=== PATIENT | female | born 1960 | race Caucasian/White ===

== ENCOUNTER 2023-10-06 23:20 | Emergency (ER) | payer BC, SELFPAY ==
[2023-10-06 23:29] VITALS: BP 133/77; BP 153/84; PULSE 78; PULSE 81; RESP 16; RESP 18; TEMP 35.9; O2SAT 98; O2SAT 99; BMI 23.6
--- NOTE | 2023-10-06 23:41 | ED_ITS ---
HPI - Allergic Reaction General Chief complaint: Allergic Reaction Stated complaint: allergic reaction Time Seen by Provider: 10/06/23 23:36 History of Present Illness HPI narrative: Patient is a 63-year-old woman who be traveling to [place] this coming week. She took a herbal supplement tonight to improve her immunity and shortly after ingesting the tablet developed some flushing of her face and neck. Her symptoms are better now. She has no mucous membrane involvement no chest pain no shortness of breath orthopnea no PND no nausea no vomiting. She has had no similar spots as previously. Patient otherwise feels well. Related Data Home Medications ?Medication ?Instructions ?Recorded ?Confirmed fluoxetine 20 mg capsule 20 mg PO QAM 10/06/23 10/06/23 Allergies Allergy/AdvReac Type Severity Reaction Status Date / Time No Known Drug Allergies Allergy Verified 10/06/23 23:31 Review of Systems Status of ROS Reports: 10 or more systems reviewed and unremarkable except as noted in History and below Exam Narrative: Exam Narrative: EXAM GENERAL: Patient appears comfortable and well. EYES: No scleral icterus. ENT: Tympanic membranes and oropharynx normal. THYROID: no thyroid nodules or thyromegaly. LYMPH: No supraclavicular or cervical lymphadenopathy. SKIN: Visible skin seen during exam normal or with benign process only. EXT: No dependent lower extremity pedal edema. HEART: Regular rate and rhythm with no murmurs, rubs, or gallops. LUNGS: Clear to auscultation bilaterally with no crackles or wheezes. ABD: Soft, non tender, non distended. PSYCH: Good eye contact, speech is not pressured. I see no findings on exam of any urticaria. Const: Vital Signs, click to edit/add: Vital Signs - 24 hr 10/06/23 23:29 Temperature 96.7 F L Pulse Rate [Pulse Oximeter] 78 Respiratory Rate 16 Blood Pressure [Ri ght Upper Arm] 153/84 H Pulse Oximetry 98 Oxygen Delivery Me thod Room Air Course Course ED Course: Patient seen and examined. I do not find any significant findings. Her vital signs are grossly normal. Her symptoms are minimal. At this time differential diagnosis includes but not limited to. acute allergic reaction urticaria toxic ingestion food poisoning. I did offer reassurance and recommended Benadryl as directed 25-50 mg q.i.d.. They will follow-up with her primary physician as needed. Vital Signs Vital signs: Initial Vital Signs Temperature 96.7 F L 10/06/23 23:29 Temperature Source Temporal Artery Scan 10/06/23 23:29 Pulse Rate 78 10/06/23 23:29 Respiratory Rate 16 10/06/23 23:29 Blood Pressure 153/84 H 10/06/23 23:29 Blood Pressure Mean 107 H 10/06/23 23:29 Blood Pressure Position Sitting 10/06/23 23:29 Pulse Oximetry 98 10/06/23 23:29 Oxygen Delivery Method Room Air 10/06/23 23:29 Vital Signs Temperature 96.7 F L 10/06/23 23:29 Pulse Rate 78 10/06/23 23:29 Respiratory Rate 16 10/06/23 23:29 Blood Pressure 153/84 H 10/06/23 23:29 Pulse Oximetry 98 10/06/23 23:29 Oxygen Delivery Method Room Air 10/06/23 23:29 Temperature 96.7 F L 10/06/23 23:29 Pulse Rate 78 10/06/23 23:29 Respiratory Rate 16 10/06/23 23:29 Blood Pressure 153/84 H 10/06/23 23:29 Pulse Oximetry 98 10/06/23 23:29 Oxygen Delivery Method Room Air 10/06/23 23:29 Discharge Plan Discharge Clinical Impression: Allergic reaction Patient Disposition: Home, Self-Care Condition: Stable Instructions: General Allergic Reaction (ED) Additional Instructions: Benadryl 25-50 mg 4 times a day for the next 2 days and then 4 times a day as ne eded. Avoid similar products Report any change in symptoms Follow-up with your doctor as needed. Activity Level: No Restrictions Discharge Diet: Regular Prescriptions: No Action fluoxetine 20 mg capsule 20 mg PO QAM Follow Up/Referrals: Tiffany Tirado PA-C [Primary Care Provider] - Stand Alone Forms: [employer] Info Instructions
--- OUTSIDE RECORDS SUMMARY | 2023-10-07 00:23 | XMS_ITS | Clinical Summary ---
Author Organization Done In :[facility] Address [place], [place] [address] Care Team Providers Care Rn Medication Name Role Phone Tiffany Tirado Primary Care Provider Allergies Active Allergy Reactions Criticality Noted Date Comments Bacitracin Rash 09/13/2016 Latex Itching 04/12/2020 Neomycin Rash Low 04/27/2015 Bacitracin-Polymyxin B Rash 09/13/2016 Medications Medication Sig Dispensed Refills Start Date End Date Status [place]-3 Fatty Acids (FISH OIL) 500 mg capsuleIndications:P ostmenopausal atrophic vaginitis Take 2 capsules by mouth once daily. 0 07/26/2016 Active cholecalciferol, Vitamin D3, (Vitamin D-3) 2,000 unit tablet 08/23/2020 Active yysxry-woejzmoj-gbwq ermint (Atrantil) 275 mg cap 06/20/2022 Active MAGNESIUM GLYCINATE ORAL Active CALCIUM CITRATE ORAL Acti ve medication order composer Ultra Biotic Multi Strain 30 billion CFU 0 Active medication order composer [employer] Biospora 0 Active Digestive Enzymes capsule Take by mouth. Active FLUoxetine (PROZAC) 20 mg capsuleIndications:M ajor depressive disorder, recurrent episode, mild (HC) Take 1 Capsule (20 mg) by mouth every morning. 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 -1.3 in 2011. Repeat in 5-8 years. Abby Gilmore M.D. 02/10/2014 2:06 PM Knee pain 02/15/2011 Major depressive disorder, recurrent episode, mi ld 08/14/2006 Overview: doing well. has seen catalina Rudd Resolved Problems Problem Noted Date Diagnosed Date Resolved Date Somnolence 02/15/2011 04/03/2012 Immunizations Name Administration Dates Next Due AMB Influenza, IIV3 (Age >=3 years)(Flu Clinic Only) 03/06/2012 AMB Influenza, IIV4 PF (=>6 mos Flulaval,Fluzone Fluarix)(Flu Clinic Only) 02/29/2016 COVID-19 vaccine (Moderna 100mcg/0.5mL) PF, MDV 07/28/2020,06/30/2020 Influenza A (H1N1), Inactivated 03/25/2009 Influenza, IIV3 (Age 6-35 mos) 02/15/2011 Influenza, IIV3 (Age >=3 years) 04/28/2013,02/15,05/08/2006 Influenza, IIV4 03/18/2022, 0,01/24/2019,2017,02/18/2015,02/10/2014 Influenza, IIV4 (=>6mos) MDV 03/04/2021,02/15/20 17 Td (Age >=7 Years) 05/09/2006 Td, Preservative Free (age > = 7 Years) 01/01/2023 Tdap 04/03/2012 Zoster (Shingrix-RZV, recombinant) 10/26/2020, Family History Medical History Relation Name Comments Cancer-prostate Brother Heart Disease Father quad bypass ag e 83 Cancer-colon Maternal Aunt Cancer-colon Maternal Uncle paternal uncl e Alzheimer's disease Mother Cancer-pancreatic Mother at 87 yo Cancer-breast Other cousin Cancer-breast Sister Good Health Sister Other Sister possible osateo porosis Cancer-ovarian No Family History Relation Name Status Comments Brother Father Alive Maternal Aunt Maternal Uncle Mother Other Sister Social History Tobacco Use Types Packs/Day Years Used Date Smoking Tobacco: Never Smokeless Tobacco: Never Tobacco Cessation:Counseling Given: Yes Alcohol Use Standard Drinks/Week Comments Yes 1 (1 standard drink = 0.6 oz pur e alcohol) 4 drinks per week PHQ-2 Answer Date Recorded PHQ-2 TOTAL SCORE 0 01/01/2023 Social Connections Answer Date Recorded Frequency of Communication with Friends and Fami ly 0 01/01/2023 Alcohol Use Answer Date Recorded How often do you have a drink containing alcohol ? 2 08/24/2021 How many drinks containing a lcohol do you have on a typical day when you are drinking? 0 08/24/2021 How often do you have five or more drinks on one occasion? 0 08/24/2021 Financial Resource Strain Answer Date R ecorded Difficulty of Paying Living Expenses 3 01/01/2023 Difficulty of Paying Living Expenses Not on file 01/01/2023 Food Insecurity Answer Date Recorded Worried About Running Out of Food in the Last Ye ar 1 01/01/2023 Transportation Needs Answer Date Record ed Lack of Transportation (Medical) 1 01/01/2023 Housing Stability Answer Date Recorded Unable to Pay for Housing in the Last Year 1 01/01/2023 Sex and Gender Information Value Date Recorded Sex Assigned at Not on file Gender Identity Not on file Sexual Orientation Not on file Obstetrics History Para Term AB IAB SAB Ectopic Multiple Livin g Live Births 2 2 2 Date Outcome GA Total Labor Labor/2nd/3rd Weight Sex Delivery Anes PTL Fern A1 A5 Name Cl in Para Para Last Filed Vital Signs Vital Sign Reading Time Taken Comments Blood Pressure 104/66 01/01/2023 2:59 PM CDT Pulse 56 01/01/2023 2:59 PM CDT Temperature 36.8 ??C (98.3 ??F) 01/01/2023 2:59 PM CD T Respiratory Rate 20 01/13/2021 8:17 AM CDT Oxygen Saturation 100% 01/01/2023 2:59 PM CDT Inhaled Oxygen Concentration - - Weight 69 kg (152 lb 1.6 oz) 01/01/2023 2:59 PM CDT Height 172.7 cm (5' 8) 01/01/2023 2:59 PM CDT Body Mass Index 23.13 01/01/2023 2:59 PM CDT Plan of Treatment Health Maintenance Due Date Last Done Comments HIV for age 15-65 1974 COVID-19 vaccine series (2022- season) 2023 06/14/2022, 09/12/2021, 04/07/2021, Additional history exists BMI (ht and wt on same day) for age 18+ 01/02/2024 01/01/2023, 12/28/2021, 12/01/2020, Additional history exists Depression screening for age 12+ 01/02/2024 01/01/2023, 08/24/2021, 07/20/2020, Additional history exists Pap test for age 21-65 01/02/2024 , 02/02/2020, 02/02/2020, Additional history exists Influenza for age 50-64 01/06/2024 03/18/20, 03/04/2021, 02/02/2020, Additional history exists Mammogram for age 45-75 06/21/2024 06/21/19, 06/21/2022, 06/14/2021, Additional history exists Lipids for age 45-75 01/02/2028 01/01/2023, 12/28/2021, 01/27/2020, Additional history exists Colonoscopy through age 75 06/10/203006/10, 06/10/2020, 06/10/2020 Tetanus booster 01/01/2033 01/01/2023, 03/08, 05/09/2006 Tdap Completed 04/03/2012 Hepatitis C screening for age 18-79 Completed 02/12/2018 Fecal testing non-DNA (FIT,FOBT,iFOBT) for age 45-75 Discontinued 02/04/2020, 05/15/2016, 03/27/2014, Additional history exists Zoster (shingles) series for age 50+ Completed 10/26/2020, 02/02/2020 Pneumococcal series for age 6-64 Aged Out No longer eligible based on patient's age to complete this topic Procedures Procedure Name Priority Date/Time Associated Diagnosis Comments XR MAMMO AVELINO BILAT SCREEN Routine 06/21/2023 9:54 AM IMPROVEMENT SPECIALIST Encounter for screening mammogram for malignant neoplasm of breast LIPID PANEL W REFLEX MEASURED LDL Routine 01/01/2023 3:50 PM CDT Screening cholesterol level HPV THIN PREP Routine 01/01/2023 3:30 PM CDT Pap smear for cervical cancer screening COLONOSCOPY DIAGNOSTIC Routine 06/10/2020 9:57 AM IMPROVEMENT SPECIALIST Diarrhea, unspecified type OCCULT BLOOD IFOBT STOOL Routine 02/04/2020 10:15 AM CDT Screen for colon cancer ANTI HCV Routine 02/12/2018 10:42 AM CDT Need for hepatitis C screening test from Last 3 Months or Most Recently Relevant to Health Maintenance Results * XR MAMMO AVELINO BILAT SCREEN (06/21/2023 9:54 AM IMPROVEMENT SPECIALIST) Anatomical Region Laterality Modality BREASTS, Breast Left, Breast Right Bilateral Mammography Impressions 06/22/2023 10:30 PM IMPROVEMENT SPECIALIST ??There is no radiographic evidence for malignancy. ??Recommend annual mammograms. MAMMOGRAM ASSESSMENT: ??ACR 1 Negative PATIENTS: You will also receive a letter with your examination results in an easy to read format. ??If you have questions about your results, please contact your referring provider. Narrative 06/22/2023 10:30 PM IMPROVEMENT SPECIALIST For Patients: As a result of the Century Cures Act, medical imaging exams and procedure reports are released immediately into your electronic medical record. You may view this report before your referring provider. If you have questions, please contact your health care provider. XR MAMMO AVELINO BILAT SCREEN [[id number]] CLINICAL HISTORY: ??This is an asymptomatic 63 y.o. patient. INDICATION FOR EXAM: Mammogram Screening. TECHNIQUE: CC & MLO views were obtained. ??This study was evaluated with the assistance of Computer-Aided Detection. Breast Tomosynthesis was used in interpretation. COMPARISON FILM: Yes 06/21/22 [facility] 05/31/21 [facility] [employer] [employer] FINDINGS: ??The breasts have scattered areas of fibroglandular density. There are no dominant masses, suspicious micro calcifications or areas of architectural distortion. Tiffany DEJESUS MAMMO * (ABNORMAL) LIPID PANEL W REFLEX MEASURED LDL (01/01/2023 3:50 PM CDT) CHOLESTEROL,TOTAL 206(H) 100 - 199 mg/dL 01/03/2023 3:34 AM CDT [facility] Comment: Cholesterol, Total Reference Ranges Desirable <200 mg/dL Borderline 200-239 mg/dL High >=240 mg/dL TRIGLYCERIDES 59 <150 mg/dL 01/03/2023 3:34 AM CDT [facility] HDL CHOLESTEROL 95 >40 mg/dL 3:34 AM CDT [facility] NON-HDL CHOLESTEROL 111 <145 mg/dl 01/03/2023 3:34 AM CDT [facility] CHOL/HDL RATIO 2.17 <4.50 01/03/2023 3:34 AM CDT [facility] LDL CHOLESTEROL 99 <=130 mg/dL 01/03/2023 3:34 AM CDT [facility] VLDL CHOLESTEROL 12 <=30 mg/dL 01/03/2023 3:34 AM CDT [facility] PROVIDER ORDERED STATUS RANDOM 01/03/2023 3:34 AM CDT [facility] Blood BLOOD SPECIMEN / Unknown Venipuncture / Unknown 01/01/2023 3:50 PM CDT 01/01/2023 3:50 PM CDT Tiffany DEJESUS [facility] [address] [place] [address], * HPV HIGH RISK (01/01/2023 3:30 PM CDT) TYPE 16 Negative Negative 01/12/2023 1:22 PM CDT [facility] TYPE 18 Negative Negative 01/12/2023 1:22 PM CDT [facility] OTHER HIGH RISK TYPES Negative Negative 01/12/2023 1:22 PM CDT [facility] Tissue (Other) Non-Blood / Unknown 01/01/2023 3:30 PM CDT 01/10/2023 12:50 PM CDT Narrative [facility] - 01/12/2023 1:22 PM CDT HPV types 16, 18, 31, 33, 35, 39, 45, 51, 52, 56, 58, 59, 66 and 68 DNA were undetectable or below the pre-set threshold. Methodology: Tyler Maryan 4800 HPV Test Tiffany DEJESUS MICROBIOLOGY [facility] [address] [place] [address], [place] * COLONOSCOPY (06/10/2020 10:04 AM IMPROVEMENT SPECIALIST) 06/10/2020 10:0 4 AM IMPROVEMENT SPECIALIST Narrative Transcriptions Brody Rogers MD - 06/10/2020 11:01 AM CST Patient Name: Brooklyn Vasques Procedure Date: 06/10/2020 Gender: Female Date of : 1960 Admit Type: Outpatient Procedure: Colonoscopy Proceduralist: Brody Rogers MD , Bia Abernathy (Nurse) Referring MD: Tiffany Tirado Indications/Pre-Op Diagnosis: Clinically significant diarrhea ofunexplained origin, This is the patient's firstcolonoscopy Medications: Fentanyl 100 micrograms IV, Midazolam 2 mgIV, The level of sedation administered wasmoderate Procedure Description: The patient had risks, benefits and alternatives explained to andgave informed consent. The patient had a stable cardiopulmonary status and judged an adequate candidate for conscious sedation. The [id number] was passed through the anus and advanced to 4cm into the ileum. The colonoscopy was performed without difficulty. The patient tolerated the procedure well. The quality of the bowel preparation was good. The terminal ileum, ileocecal valve,appendiceal orifice, and rectum were photographed. Complications: No immediate complications. Estimated Blood Loss & Specimen: Estimated blood loss: none. Specimen collected - Yes and sent to Laboratory Findings: The perianal and digital rectal examinations were normal. The terminal ileum appeared normal. A 3 mm polyp was found in the rectum. The polyp was sessile. Thepolyp was removed with a cold biopsy forceps. Resection and retrieval were complete. The exam was otherwise without abnormality on direct and retroflexion views. Biopsies for histology were taken with a cold forceps from the entire colon for evaluation of microscopic colitis. Impressions/Post-Op Diagnosis: - The examined portion of the ileum was normal. - One 3 mm polyp in the rectum, removed with a cold biopsy forceps. Resected and retrieved. - The examination was otherwise normal on direct and retroflexionviews. - Biopsies were taken with a cold forceps from the entire colon for evaluation of microscopic colitis. Recommendation: - Patient has a contact number available for emergencies. The signsand symptoms of potential delayed complications were discussed with the patient. Return to normal activities tomorrow. Written discharge instructions were provided to the patient. - Resume previous diet. - Continue present medications. - Await pathology results. - Repeat colonoscopy is recommended. The colonoscopy date will be determined after pathology results from today's exam become available for review. Moderate Sedation: Moderate (conscious) sedation was administered by the endoscopy nurse and supervised by the endoscopist. The following parameters were monitored: oxygen saturation, heart rate, respiratory rate, blood pressure, adequacy of pulmonary ventilation and reponse to care. Please refer to the patient's medical record flowsheets and nursing notes for moderate sedation details. Total physician intraservice time was 29 minutes. Brody Rogers MD 06/10/2020 11:00:58 AM This report has been signed electronically. Note Initiated On: 06/10/2020 10:04 AM Procedure Code(s): --- Professional --- 68316, Colonoscopy, flexible; with biopsy, single or multiple Diagnosis Code(s): --- Professional --- K62.1, Rectal polyp R19.7, Diarrhea, unspecified CPT copyright 2019 [employer]. All rights reserved. The codes documented in this report are preliminary and upon statement clerks manager reviewmay be revised to meet current compliance requirements. Scope In: 10:29:16 AM Scope Withdrawal Time 0 hours 13 minutes 6 seconds Scope Out: 10:55:39 AM Brody Rogers MD PROCEDURE ORD * OCCULT BLOOD IFOBT STOOL (02/04/2020 10:15 AM CDT) STOOL BLOOD ,IFOBT Negative Negative 02/04/2020 11:52 AM CDT [facility] Stool STOOL SPECIMEN / Unknown Non-Blood / Unknown 02/04/2020 10:15 AM CDT 02/04/2020 11:07 AM CDT Tiffany DEJESUS [facility] [address] [place] [address], * ANTI HCV [15467.2] (02/12/2018 10:42 AM CDT) HEPATITIS C ANTIBODY Non-React shar Non-React shar 02/12/2018 4:29 PM CDT [facility] Comment:Antibodies to HCV no t detected; does not exclude the possibility of exposure to HCV. Blood BLOOD SPECIMEN / Unknown Venipuncture / Unknown 02/12/2018 10:42 AM CDT 02/12/2018 10:42 AM CDT Tiffany DEJESUS S[facility] [address] [place] [address], from Last 3 Months or Most Recently Relevant to Health Maintenance Additional Health Concerns Infection Onset Date Last Indicated Rule-Out C.diff 04/20/2020 04/20/2020 Care Teams Rn Medication Relationship Specialty Start Date End Date Tiffany [place] [address] [place] [address] PCP - General Family Practice 06/10/15
== END 2023-10-07 00:19 | disposition home or self-care (01) ==
LOC: ED 10-07 00:19
PROVIDERS: Emergency Provider Internal Medicine; PCP Physician Assistant Medical
DX: T78.40XA Allergy, unspecified, initial encounter (principal)
CPT/HCPCS: 99282; 99283